=== PATIENT | male | born 2000 | race Caucasian/White ===

== ENCOUNTER 2025-03-11 13:09 | Emergency (ER) | payer OTHER ==
[~2025-03-11] VITALS: Ht 185.4 cm; Wt 148.3 kg
[2025-03-11] MEDS ORDERED: SODIUM CHLORIDE 0.9% 1,000 ML IV ONE (13:30)
[2025-03-11] MEDS ORDERED: KETOROLAC TROMETHAMINE 30 MG/ML VIAL IV ONE (13:30)
[2025-03-11 13:35] LABS: BASOPHILS 0.5 % (0.2-1.2); EOSINOPHILS 0.8 % (0.8-7.0); LYMPHOCYTES 16.9 % (21.8-53.1); MCH 29.1 PG (25.7-32.2); MCHC 33.2 g/dL (32.3-36.5); MCV 87.8 fL (79.0-92.2); MONOCYTES 8.7 % (5.3-12.2); NEUTROPHILS 72.7 % (34.0-67.9); RBC 5.32 M/uL (4.63-6.08)
[2025-03-11 13:51] LABS: ALT (SGPT) 28.0 U/L (14-59); AST (SGOT) 15.0 U/L (15-37); GLOMERULAR FILTRATION RATE,EST 107.0 mL/min (>60); PROTEIN, TOTAL 7.4 g/dL (6.4-8.2); UREA NITROGEN 13.0 mg/dL (7-18)
--- NOTE | 2025-03-11 16:01 | EKG ---
[facility] [address] [facility] [place], [place] [address] Signed Sinus tachycardia Otherwise normal ECG No previous ECGs available Confirmed by ABE GONZALEZ MD ([id number]) on 03/11/2025 4:01:35 PM Electronically Signed By: ABE GONZALEZ 03/11/25 1601 PATIENT NAME: KASSIDYJESSEGURU Electrocardiogram DATE OF : 4 PHYSICIAN: ABE GONZALEZ REPORT #: [id number] REPORT IS CONFIDENTIAL AND NOT TO BE RELEASED WITHOUT AUTHORIZATION
[2025-03-11 18:29] VITALS: BP 142/79
== END 2025-03-11 18:35 | disposition home or self-care (01) ==
LOC: ED 13:09
PROVIDERS: Emergency Medicine
DX: R07.9 Chest pain, unspecified (principal); B34.9 Viral infection, unspecified
CPT/HCPCS: 36415; 71045; 80053; 83605; 83690; 84484; 85025; 85379; 87040; 93005; 93010; 93306; 96374; 96375; 99285-25; J1885; J2405; J7030